=== PATIENT | male | born 1990 | race Caucasian/White ===

== ENCOUNTER 2019-02-04 23:05 | Emergency (ER) | payer OTHER ==
[2019-02-04 23:51] VITALS: BP 128/77; PULSE 59; TEMP 98.1; BMI 27.1
[2019-02-05] MEDS ORDERED: guaiFENesin 200 MG/10 ML 10 ML UNIT-DOSE CUPS PO ONE (00:21)
[2019-02-05] MEDS ORDERED: guaiFENesin 200 MG/10 ML 10 ML UNIT-DOSE CUPS ONE (00:27)
--- NOTE | 2019-02-05 00:56 | PDOC ---
History of Present Illness - General Chief Complaint: Cold Symptoms Stated Complaint: COUGH/THREE WEEKS SICK/LUNGS HURT Time Seen by Provider: 02/04/19 23:55 History Source: Patient Exam Limitations: Language Barrier ([facility] resident urgent care ID#[id number]) Past History - Past Medical History Allergies/Adverse Reactions: Allergies Allergy/AdvReac Type Severity Reaction Status Date / Time No Known Allergies Allergy Verified 02/04/19 23:32 - Suicide/Smoking/Psychosocial Hx Smoking History: Never smoked Have you smoked in the past 12 months: No Information on smoking cessation initiated: No Hx Alcohol Use: No Drug/Substance Use Hx: No *Physical Exam - Vital Signs Last Vital Signs Temp Pulse Resp BP Pulse Ox 98.1 F 59 L 19 128/77 99 02/04/19 23:05 02/04/19 23:05 02/04/19 23:05 02/04/19 23:05 02/04/19 23:05 - Physical Exam General Appearance: No: Apparent Distress HEENT: positive: Normal ENT Inspection. negative: Muffled/Hoarse voice, Pharyngeal Erythema, Tonsillar Exudate, Tonsillar Erythema, Nasal Congestion, Rhinorrhea, Sinus Tenderness Neck: positive: Supple Respiratory/Chest: positive: Lungs Clear, Normal Breath Sounds. negative: Respiratory Distress Cardiovascular: positive: Regular Rhythm, Regular Rate, S1, S2. negative: Murmur Gastrointestinal/Abdominal: positive: Normal Bowel Sounds, Soft. negative: Tender, Distended, Guarding, Rebound Integumentary: positive: Normal Color Neurologic: positive: Alert, Normal Mood/Affect ED Treatment Course - RADIOLOGY Radiology Studies Ordered: Category Date Time Status CHEST PA & LAT [RAD] Stat Radiology 02/05/19 00:21 Ordered - Medications Given in the ED: ED Medications Discontinued Medications Generic Name Dose Route Start Last Admin Trade Name Freq PRN Reason Stop Dose Admin Guaifenesin 10 ml 02/05/19 00:21 02/05/19 00:31 Robitussin - PO 02/05/19 00:22 10 ml ONCE ONE Administration Medical Decision Making - Medical Decision Making 28 y/o M with no sig pmh presents with cough x 1 month, initially dry, but concerned as today noticed some phlegm with tinge of blood. Cough associated with occasional runny nose and postnasal drip. Also with CP, only with coughing. Has only tried Vicks cough syrup which has not helped much. Has not seen any doctor regarding his sxs. Denies fever, nasal congestion, sore throat, sneezing, watery/teary eyes, sob, cp, abd pain, n/v/d, recent travel. Denies smoking. Possible viral syndrome? Consider allergies? Plan: CXR to r/o [facility] 02/05/19 00:53 CXR wet read negative Patient feeling better after given Robitussin 02/05/19 01:14 *DC/Admit/Observation/Transfer Diagnosis at time of Disposition: Cough - Discharge Dispostion Disposition: HOME Condition at time of disposition: Stable Decision to Admit order: No - Referrals - Patient Instructions Printed Discharge Instructions: DI for Cough -- Adult Additional Instructions: Thank you for choosing [facility]. It was a pleasure taking care of you. Your chest xray was negative You can try Robitussin cough medication as needed for cough You can use saline nasal spray if feeling congested If you have heat on at night, recommend use of humidifier Recommend follow-up with your doctor for further evaluation Return to the Emergency Department if your symptoms worsen or persist or have other concerning symptoms. [facility] el [facility]. Fue un placer cuidar de ti. Tu radiografa de pecho fue negativa Puede probar el medicamento Robitussin para la tos segn sea necesario para la tos Se puede usar spray nasal salino si se siente congestionado. Si tiene calor por la noche, recomiende el uso de humidificador Recomienda un seguimiento con [facility] para cate evaluacin adicional Regrese al Departamento de Emergencias si anel sntomas empeoran o persisten o si tiene otros sntomas relacionados. Print Language: PORTUGUESE - Post Discharge Activity
--- NOTE | 2019-02-05 02:16 | PDOC ---
*Physical Exam - Vital Signs Last Vital Signs Temp Pulse Resp BP Pulse Ox 98.1 F 59 L 19 128/77 99 02/04/19 23:05 02/04/19 23:05 02/04/19 23:05 02/04/19 23:05 02/04/19 23:05 ED Treatment Course - Medications Given in the ED: ED Medications Discontinued Medications Generic Name Dose Route Start Last Admin Trade Name Freq PRN Reason Stop Dose Admin Guaifenesin 10 ml 02/05/19 00:21 02/05/19 00:31 Robitussin - PO 02/05/19 00:22 10 ml ONCE ONE Administration Medical Decision Making - Medical Decision Making 02/05/19 02:16 Case discussed with ITZEL Desir Agree with assessment and plan *DC/Admit/Observation/Transfer Diagnosis at time of Disposition: Cough - Discharge Dispostion Disposition: HOME Condition at time of disposition: Stable - Referrals - Patient Instructions Printed Discharge Instructions: DI for Cough -- Adult Additional Instructions: Thank you for choosing [facility]. It was a pleasure taking care of you. Your chest xray was negative You can try Robitussin cough medication as needed for cough You can use saline nasal spray if feeling congested If you have heat on at night, recommend use of humidifier Recommend follow-up with your doctor for further evaluation Return to the Emergency Department if your symptoms worsen or persist or have other concerning symptoms. [facility]. Fue un placer cuidar de ti. Tu radiografa de pecho fue negativa Puede probar el medicamento Robitussin para la tos segn sea necesario para la tos Se puede usar spray nasal salino si se siente congestionado. Si tiene calor por la noche, recomiende el uso de humidificador Recomienda un seguimiento con [facility] para cate evaluacin adicional Regrese al Departamento de Emergencias si anel sntomas empeoran o persisten o si tiene otros sntomas relacionados. Print Language: LUX[place] - Post Discharge Activity
== END 2019-02-05 01:24 | disposition home or self-care (01) ==
LOC: JER 23:05
DX: R05 Cough (principal)
CPT/HCPCS: 71046-TC-FY; 99281-25

== ENCOUNTER 2019-03-19 21:29 | Emergency (ER) | payer OTHER | END 2019-03-20 03:31 | disposition short-term general hospital (02) | LOC: JER 03-20 03:31 ==